=== PATIENT | male | born 1965 | race Caucasian/White ===

== ENCOUNTER 2023-12-20 09:14 | Emergency (ER) | payer OTHER, SELFPAY ==
[2023-12-20] VITALS (78 sets, daily range): BP systolic 106–150; BP diastolic 49–94; PULSE 67–97; RESP 10–30; O2SAT 89–99
--- NOTE | 2023-12-20 09:15 | RT.EKG_ITS ---
APPROVED REPORT Exam: Resting ECG Reason for Exam: chest pain Patient Location: E HR:80 bpm ECG Measurements Heart Rate 80 AXIS VT 210 P 34 QRSd 95 QRS 20 QT 349 T 66 QTc 402 Conclusion Sinus rhythm...normal P axis, V-rate 60- 99 Prolonged VT interval...VT >210, V-rate 50- 90 Anteroseptal infarct, old...Q >40mS, V1-V2
[2023-12-20 09:49] LABS: Abs Immature Grans 0.01 10^3/uL (0.0-0.06); Absolute Basophil Count 0.06 10^3/uL (0.0-0.2); Absolute Monocyte Count 0.57 10^3/uL (0.1-0.8); Basophils % 1.1; Eosinophils % 1.8; HCT 53.3 % (40.0-50.0); HGB 18.3 g/dL (13.5-17.5); Immature Grans % 0.2; Lymphocytes % 30.7; MCH 29.2 pg (27.0-33.0); MCHC 34.3 % (32.0-36.0); MCV 85 fL (80-95); MPV 8.4 fL (8.0-11.0); Monocytes % 10.3; Neutrophils % 55.9; Platelet Count 239 10^3/uL (130-400); RBC 6.27 10^6/uL (4.36-5.78); RDW 12.3 % (11.8-14.1); RDW-SD 38.1 fL; WBC 5.54 10^3/uL (4.4-10.8)
[2023-12-20] MEDS: Acetaminophen 325 MG TAB 650 MG PO (09:49)
[2023-12-20] MEDS: nitroGLYcerin 0.4 MG TAB SL ×2 (09:51→10:07)
[2023-12-20 10:04] LABS: Diff Comment RBC Morph Reviewed; RBC Morphology Normal
[2023-12-20 10:08] LABS: ALT 39 U/L (16-63); AST 32 U/L (15-37); Albumin 4.1 g/dL (3.4-5.0); Alkaline Phosphatase 91 U/L (46-116); Anion Gap 10.3 mmol/L (3-11); BUN 17 mg/dL (7-18); Bilirubin, Total 1.1 mg/dL (0.2-1.0); CO2 25.7 mmol/L (21.0-32.0); Chloride 101 mmol/L (98-107); Estimated GFR 87.78 (mL/min/1.73m2); Glucose 141 mg/dL (74-106); Magnesium 2.1 mg/dL (1.8-2.4); Potassium 4.1 mmol/L (3.5-5.1); Sodium 137 mmol/L (136-145); Total Protein 7.4 g/dL (6.4-8.2); Troponin I < 50 ng/L (< or =60)
--- NOTE | 2023-12-20 10:43 | ED.GENADUL_ITS ---
HPI General Mode of arrival: ambulatory . Date/Time Provider Initiated Documentation: 12/20/23 09:18 . Limitations to Documentation: no limitations . Information obtained by: patient . HPI Narrative: 58-year-old male with history of coronary artery disease status post stenting x 2 to LAD, 2016 TANA x 1 LAD, 2017 TANA x 1 LAD, presenting with chest discomfort. Patient notes intermittent chest discomfort described as a heaviness over the past 2 weeks. He states it feels similar to when he had ACS in the past although less severe. Discomfort does radiate into his arms. No associated s hortness of breath. No leg swelling. No recent long distance travel. Patient notes generally not feeling well. No nausea. No diaphoresis. Related Data Home Medications Medication Instructions Recorded Confirmed amlodipine 10 mg tablet 10 mg PO DAILY 12/20/23 12/20/23 aspirin 81 mg capsule 81 mg PO DAILY 12/20/23 12/20/23 dapagliflozin propanediol 10 mg 10 mg PO DAILY 12/20/23 12/20/23 tablet (Farxiga) evolocumab 140 mg/mL subcutaneous 140 mg subcut Q2W 12/20/23 12/20/23 pen injector (Repatha [employer]) losartan 25 mg tablet 12.5 mg PO DAILY 12/20/23 12/20/23 metoprolol succinate 50 mg capsule 50 mg PO DAILY 12/20/23 12/20/23 sprinkle, ext. release 24 hr semaglutide 0.25 mg or 0.5 mg (2 0.25 mg subcut QWEEK 12/20/23 12/20/23 mg/3 mL) subcutaneous [facility] testosterone 100 mg/mL 0.75 mg IM QWEEK 12/20/23 12/20/23 intramuscular suspension Allergies Allergy/AdvReac Type Severity Reaction Status Date / Time Penicillins Allergy Mild Other (See Verified 12/20/23 09:52 Comment) [id number] Reductase AdvReac Severe Other (See Verified 12/20/23 09:52 Inhibitor Comment) General Stated Complaint: Chest Pain JOLEEN: 3 Review of Systems All systems reviewed & are unremarkable except as noted in HPI and below Constitutional Constitutional: Denies fever(s) Cardiovascular Cardiovascular: Reports as per HPI Exam Const General: cooperative and no acute distress HENMT Mouth: moist mucous membranes Eyes Conjunctivae: normal conjunctivae Sclera: normal sclerae EOM: EOM intact bilaterally Neck Neck: trachea midline and supple Resp Auscultation: clear to auscultation bilaterally, no rales, no rhonchi and no wheezes Cardio Rate: regular rate and not tachycardic Rhythm: regular rhythm GI Palpation: soft, not firm, no guarding, no masses, not rigid and nontender Skin General skin exam: no rashes or lesions noted Neuro General: patient alert, patient awake and tone normal Extrem General: no calf tenderness and no edema Psych Appearance: grossly normal Mental Status: mental status grossly normal Speech and Movement: speech and movement normal Course Vital Signs Vital signs: Vital Signs Pulse 86 12/20/23 09:18 Respiratory Rate 18 12/20/23 09:18 Blood Pressure 146/84 H 12/20/23 09:18 Pulse Oximetry 96 12/20/23 09:18 Pulse 77 12/20/23 10:21 Pulse 82 12/20/23 10:21 Respiratory Rate 15 12/20/23 10:21 Respiratory Effort Normal, Non-Labored 12/20/23 10:22 Respiratory Depth Normal 12/20/23 10:22 Respiratory Pattern Normal 12/20/23 10:22 Blood Pressure 107/59 L 12/20/23 10:21 Blood Pressure Mean 74 12/20/23 10:21 Blood Pressure Position Sitting 12/20/23 09:18 Pulse Oximetry 93 12/20/23 10:21 Oxygen Delivery Method Room Air 12/20/23 09:18 Oxygen Flow Rate 0 12/20/23 09:18 Pain Level 3 12/20/23 10:22 Lab/Test Results Lab/Test Results: Laboratory Tests Range/Units 12/20/23 09:43 WBC (4.4-10.8) 10^3/uL 5.54 RBC (4.36-5.78) 10^6/uL 6.27 H Hgb (13.5-17.5) g/dL 18.3 H Hct (40.0-50.0) % 53.3 H MCV (80-95) fL 85 MCH (27.0-33.0) pg 29.2 MCHC (32.0-36.0) % 34.3 RDW (11.8-14.1) % 12.3 Plt Count (130-400) 10^3/uL 239 MPV (8.0-11.0) fL 8.4 Immature Gran % 0.2 Neutrophils % 55.9 Lymphocytes % 30.7 Monocytes % 10.3 Eosinophils % 1.8 Basophils % 1.1 Nucleated RBC % (0.0-0.3) % 0.0 Absolute Neutrophils (1.2-6.7) 10^3/uL 3.10 Absolute Lymphocytes (1.2-3.4) 10^3/uL 1.70 Absolute Monocytes (0.1-0.8) 10^3/uL 0.57 Absolute Eosinophils (0.0-0.7) 10^3/uL 0.10 Absolute Basophils (0.0-0.2) 10^3/uL 0.06 RBC Morphology Normal Sodium (136-145) mmol/L 137 Potassium (3.5-5.1) mmol/L 4.1 Chloride (98-107) mmol/L 101 Carbon Dioxide (21.0-32.0) mmol/L 25.7 Anion Gap (3-11) mmol/L 10.3 BUN (7-18) mg/dL 17 Creatinine (0.70-1.30) mg/dL 1.0 Est GFR (CKD-EPI 2020) (mL/min/1.73m2) 87.78 Glucose (74-106) mg/dL 141 H Calcium (8.5-10.1) mg/dL 9.0 Magnesium (1.8-2.4) mg/dL 2.1 Total Bilirubin (0.2-1.0) mg/dL 1.1 H AST (15-37) U/L 32 ALT (16-63) U/L 39 Alkaline Phosphatase (46-116) U/L 91 Troponin I (< or =60) ng/L < 50 Total Protein (6.4-8.2) g/dL 7.4 Albumin (3.4-5.0) g/dL 4.1 Medical Decision Making 1045 --patient was seen immediately on arrival. 58-year-old male with history of coronary artery disease status post stenting in 2016 and 2017 to the left LAD, hypertension, hyperlipidemia, diabetes, presents with chest heaviness intermittent over the past 2 weeks. Symptoms occurring at rest. Patient is hemodynamically stable. Saturating well in no respiratory distress. I am concerned about acute coronary syndrome. EKG was reviewed and interpreted by me: Please report, prolonged AL interval with AL 210, old anterior septal infarct, no STEMI. Plan to check troponin and trend. I reviewed outside hospital records from [facility]: Patient has had similar intermittent chest pain and symptoms similar today since his stenting although not recently. Left heart catheterization June 13, 2022 noted left main normal, left anterior descending large, patent proximal stent, mild ISR, 25%. Mid LAD likely bridging distal. Left circumflex: Large, mild disease. RCA: Large. 40% mid at acute marginal takeoff. RPL: Severe diffuse disease. -- Initial troponin negative. -- Patient reassessed after sublingual nitroglycerin and pain resolved. 1315 --second troponin negative. Repeat EKG was reviewed and interpreted by me: Please report, no significant change from prior. Patient reassessed and remained stable. 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 Donald who I spoke with about treatment today. Shared decision making to determine disposition with the patient and his after speaking with Dr. Donald. Plan for discharge with close outpatient follow-up and stress testing which Dr. Vaughan will help arrange. Lab Data Lab results reviewed: Yes I reviewed the patient's lab results. Labs: Laboratory Tests Range/Units 12/20/23 12/20/23 09:43 12:36 WBC (4.4-10.8) 10^3/uL 5.54 RBC (4.36-5.78) 10^6/uL 6.27 H Hgb (13.5-17.5) g/dL 18.3 H Hct (40.0-50.0) % 53.3 H MCV (80-95) fL 85 MCH (27.0-33.0) pg 29.2 MCHC (32.0-36.0) % 34.3 RDW (11.8-14.1) % 12.3 Plt Count (130-400) 10^3/uL 239 MPV (8.0-11.0) fL 8.4 Immature Gran % 0.2 Neutrophils % 55.9 Lymphocytes % 30.7 Monocytes % 10.3 Eosinophils % 1.8 Basophils % 1.1 Nucleated RBC % (0.0-0.3) % 0.0 Absolute Neutrophils (1.2-6.7) 10^3/uL 3.10 Absolute Lymphocytes (1.2-3.4) 10^3/uL 1.70 Absolute Monocytes (0.1-0.8) 10^3/uL 0.57 Absolute Eosinophils (0.0-0.7) 10^3/uL 0.10 Absolute Basophils (0.0-0.2) 10^3/uL 0.06 RBC Morphology Normal Sodium (136-145) mmol/L 137 Potassium (3.5-5.1) mmol/L 4.1 Chloride (98-107) mmol/L 101 Carbon Dioxide (21.0-32.0) mmol/L 25.7 Anion Gap (3-11) mmol/L 10.3 BUN (7-18) mg/dL 17 Creatinine (0.70-1.30) mg/dL 1.0 Est GFR (CKD-EPI 2020) (mL/min/1.73m2) 87.78 Glucose (74-106) mg/dL 141 H Calcium (8.5-10.1) mg/dL 9.0 Magnesium (1.8-2.4) mg/dL 2.1 Total Bilirubin (0.2-1.0) mg/dL 1.1 H AST (15-37) U/L 32 ALT (16-63) U/L 39 Alkaline Phosphatase (46-116) U/L 91 Troponin I (< or =60) ng/L < 50 < 50 Total Protein (6.4-8.2) g/dL 7.4 Albumin (3.4-5.0) g/dL 4.1 Quality:SDOH Health Related Social Needs: No Data to Display PFSH All Active Problems (Updated 12/20/23 @ 13:16 by Redd Gaona MD) Chest pain (Acute) Prolonged P-R interval (Acute) Hyperlipemia (Acute) HTN (hypertension) (Chronic) Medical History (Updated 12/20/23 @ 13:16 by Redd Gaona MD) CAD (coronary artery disease) Social History Smoking risk assessment performed?: No Substance use type: does not use Do you feel safe at home: Yes Do you feel safe in your relationship?: Yes Discharge Plan Disposition Patient Disposition: Home Condition: Stable Discharge Details Clinical Impression: Prolonged P-R interval, Chest pain Primary Care Provider: Susan Jaramillo ED Provider: Redd Gaona Home Meds and New Rx's Prescriptions: Continued losartan 25 mg tablet 12.5 mg PO DAILY amlodipine 10 mg tablet 10 mg PO DAILY metoprolol succinate 50 mg capsule,sprinkle,ER 24hr 50 mg PO DAILY Repatha SureClick 140 mg/mL pen injector 140 mg subcut Q2W Farxiga 10 mg tablet 10 mg PO DAILY Ozempic 0.25 mg or 0.5 mg (2 mg/3 mL) pen injector 0.25 mg subcut QWEEK Rx Instructions: for 4 weeks testosterone 100 mg/mL suspension 0.75 mg IM QWEEK aspirin 81 mg capsule 81 mg PO DAILY Discharge Instructions Instructions: Chest Pain (ED) Additional Instructions: Please take your nitroglycerin as prescribed for chest discomfort. Please call your high school chemistry teacher today to arrange timely outpatient follow-up and further outpatient diagnostic workup. Please contact your primary care physician to arrange follow-up. Return to the ER immediately for any worsening or new concerning symptoms. Referrals: Susan Jaramillo [Primary Care Provider] - Discharge Data Discharge Date/Time-TO BE ENTERED AT DEPARTURE: 12/20/23 13:38
--- NOTE | 2023-12-20 11:45 | DI.RAD_ITS ---
Exam(s) XR PORTABLE CHEST AP EXAM: XR PORTABLE CHEST AP CLINICAL HISTORY: chest pain TECHNIQUE: 2D digital imaging was performed of the chest. One image was obtained. An AP view was ob tained. COMPARISON: No exams were available for comparison FINDINGS: MEDIASTINUM: Normal. HEART: Normal. PULMONARY VASCULATURE: Normal. LUNGS: Clear. PLEURAL SPACE: No pleural effusion or pneumothorax. BONE:Within normal limits for the patient's age. OTHER FINDINGS:Normal. IMPRESSION: No acute pulmonary findings. DATA REPOSITORY: RADIATION DOSE DELIVERED:
--- NOTE | 2023-12-20 13:00 | RT.EKG_ITS ---
APPROVED REPORT Exam: Resting ECG Reason for Exam: chest pain Patient Location: E HR:74 bpm ECG Measurements Heart Rate 74 AXIS NC 214 P 41 QRSd 99 QRS 30 QT 375 T 76 QTc 416 Conclusion Sinus rhythm...normal P axis, V-rate 60- 99 Prolonged NC interval...NC >210, V-rate 50- 90 Anteroseptal infarct, old...Q >40mS, V1-V2
[2023-12-20 13:04] LABS: Troponin I < 50 ng/L (< or =60)
== END 2023-12-20 13:38 | disposition home or self-care (01) ==
PROVIDERS: Emergency Provider Student in an Organized Health Care Education/Training Program; PCP Internal Medicine
DX: R07.9 Chest pain, unspecified (principal); I25.10 Atherosclerotic heart disease of native coronary artery without angina pectoris; R94.31 Abnormal electrocardiogram [ECG] [EKG]; I10 Essential (primary) hypertension; E78.5 Hyperlipidemia, unspecified; E11.9 Type 2 diabetes mellitus without complications; Z79.85 Long-term (current) use of injectable non-insulin antidiabetic drugs
CPT/HCPCS: 36415; 80053; 93005; 99284; 71045; 83735; 84484; 85025; 93010